=== PATIENT | male | born 1955 | race Caucasian/White ===

== ENCOUNTER → 2021-12-17 | Outpatient (CLI) | payer MEDICARE, OTHER | LOC: EROP 13:17 | DX: U07.1 COVID-19 (principal); R05.9 Cough, unspecified | CPT/HCPCS: U0002 ==

== ENCOUNTER → 2021-12-24 | Outpatient (CLI) | payer MEDICARE, OTHER ==
[~2021-12-24] VITALS: Ht 175.3 cm; Wt 88.5 kg
== END ==
LOC: EROP 12:20
DX: U07.1 COVID-19 (principal); E11.9 Type 2 diabetes mellitus without complications; I10 Essential (primary) hypertension; Z23 Encounter for immunization
CPT/HCPCS: M0247; Q0247